=== PATIENT | male | born 1960 | race Caucasian/White ===

== ENCOUNTER 2017-01-08 16:29 | Emergency (ER) | payer SELFPAY ==
[~2017-01-08] VITALS: Ht 167.6 cm; Wt 86.6 kg
[~2017-01-08 16:29] MED LIST: FLEXERIL PO; FLEXERIL5 M1 PO; NAPROSYN500 MG PO; ULTRAM50 M1 PO
[2017-01-08] MEDS ORDERED: ZYRTEC10 MG PO (16:45)
[2017-01-08] MEDS ORDERED: ZANTAC 150 PO (16:45)
[2017-01-08 17:18] LABS: HEMATOCRIT 47.4 % (39.0-50.0); HEMOGLOBIN 16.3 g/dl (14.0-18.0); IMMATURE GRANULOCYTES 0.3 % (0.0-1.0); MEAN CELL VOLUME 88.4 fL CALC (80.0-100.0); MEAN CORPUSCULAR HGB 30.4 pG CALC (26.0-32.0); MEAN CORPUSCULAR HGB CONC 34.4 g/L CALC (32.0-36.0); NEUT# 4.71 thou/uL (1.82-7.42); RED BLOOD COUNT 5.36 mill/uL (4.70-6.10); RED CELL DISTRI WIDTH 12.8 % (11.5-15.5)
[2017-01-08 17:31] LABS: ALBUMIN 4.7 g/dL (3.2-5.0); ALKALINE PHOSPHATASE 114 u/l (38-126); ANION GAP 19 (6-22 (CALC)); BILIRUBIN, TOTAL 1.5 mg/dL (0.0-1.4); BUN 14 mg/dL (9-20); BUN/CREATININE RATIO 20 (12-20 (CALC)); CALCIUM 9.9 mg/dL (8.4-10.2); CARBON DIOXIDE 25 mmol/l (22-30); CHLORIDE 101 mmol/l (95-108); CREATININE 0.7 mg/dL (0.7-1.3); GFR > 60 ML/MIN (>=60 (CALC)); GFR FOR AFR.AMER. > 60 ML/MIN (>=60 (CALC)); GLUCOSE 94 mg/dL (75-110); POTASSIUM 3.9 mmol/l (3.5-5.1); SGOT/AST 68 u/l (17-59); SGPT/ALT 98 u/l (21-72); SODIUM 141 mmol/l (137-146); TOTAL PROTEIN 8.4 g/dL (6.3-8.2)
[2017-01-08 18:19] LABS: URINE BILIRUBIN - DIPSTICK NEGATIVE (NEGATIVE); URINE BLOOD DIPSTICK TRACE-INTACT (NEGATIVE); URINE CLARITY CLEAR; URINE COLOR YELLOW; URINE GLUCOSE - DIPSTICK NEGATIVE (NEGATIVE); URINE KETONE NEGATIVE (NEGATIVE); URINE LEUK ESTERASE NEGATIVE (NEGATIVE); URINE NITRITE - DIPSTICK NEGATIVE (Negative); URINE PROTEIN - DIPSTICK NEGATIVE (NEG-TRACE); URINE SPECIFIC GRAVITY 1.015
[2017-01-08] MEDS ORDERED: HYDROCHLOROT25 MG PO (20:17)
[2017-01-08 20:20] VITALS: BP 148/78
== END 2017-01-08 20:27 | disposition home or self-care (01) | DRG 305 ==
LOC: ED 16:29
PROVIDERS: Emergency Medicine
DX: I10 Essential (primary) hypertension (principal); N28.1 Cyst of kidney, acquired; F17.220 Nicotine dependence, chewing tobacco, uncomplicated; M54.9 Dorsalgia, unspecified; R94.31 Abnormal electrocardiogram [ECG] [EKG]

== ENCOUNTER 2017-07-01 16:03 | Emergency (ER) | payer SELFPAY ==
[~2017-07-01] VITALS: Ht 167.6 cm; Wt 84.0 kg
[~2017-07-01 16:03] MED LIST changes: +HYDROCHLOROT25 MG PO; +ZANTAC 150 PO; +ZYRTEC10 MG PO
[2017-07-01] MEDS ORDERED: EC-NAPROSYN500 MG PO (16:43)
[2017-07-01 16:50] VITALS: BP 150/86
== END 2017-07-01 16:50 | disposition home or self-care (01) | DRG 558 ==
LOC: ED 16:03
DX: M70.22 Olecranon bursitis, left elbow (principal); F17.220 Nicotine dependence, chewing tobacco, uncomplicated

== ENCOUNTER 2018-10-10 13:32 | Observation (INO) | payer BC ==
[~2018-10-10] VITALS: Ht 167.6 cm; Wt 83.4 kg
[~2018-10-10 13:32] MED LIST changes: +EC-NAPROSYN500 MG PO
--- NOTE | 2018-10-10 13:56 | NUR ---
TO RETURN TO LOBBY
--- NOTE | 2018-10-10 14:57 | NUR ---
TO ROOM 1
--- NOTE | 2018-10-10 15:20 | NUR ---
DR MARQUEZ IN ROOM FOR EVAL, REQUESTED STAT EKG PT HAS LEFT SHOULDER PAIN RADIATING TO CHEST, BUT DENIES PAIN CURRENTLY TO CHEST AREA. DID HAVE DISCOMFORT EARLIER IN DAY.
--- NOTE | 2018-10-10 15:25 | NUR ---
# 20 IV STARTED IN LAC WITH BLOOD SPECIMENS OBTAINED. PT REPORTS BILATERAL SHOULDER PAIN X 2 YEARS D/T SCIATIC ISSUES FROM LIFTING SOMETHING HEAVY. DOES HAVE INCREASED PAIN TO LEFT SHOULDER RADIATING TO LEFT UPPER CHEST WITH A PRESSURE LIKE ZULY-- 3/10 ON PAIN SCALE. PLAN OF CARE DISCUSSED WITH PT. VERBALIZED UNDERSTANDING. DENIES ANY NEEDS. CALL LIGHT WITHIN REACH.
[2018-10-10] MEDS ORDERED: ZANTAC150 M1 PO (15:49)
[2018-10-10] MEDS ORDERED: ZYRTEC10 MG PO (15:49)
[2018-10-10] MEDS ORDERED: LOPRESSOR50 M1 PO (15:49)
--- NOTE | 2018-10-10 16:00 | NUR ---
PT RELOCATED TO ROOM # 8 [facility] REPORT GIVEN TO EMELIA GARCIA. CARE RELINQUISHED
--- NOTE | 2018-10-10 16:00 | NUR ---
REPORT RECEIVED FROM SANTINO ORTIZ.
[2018-10-10 16:20] LABS: HEMATOCRIT 45.8 % (39.0-50.0); HEMOGLOBIN 15.6 g/dl (14.0-18.0); IMMATURE GRANULOCYTES 0.2 % (0.0-5.0); MEAN CELL VOLUME 92.5 fL CALC (80.0-100.0); MEAN CORPUSCULAR HGB 31.5 pG CALC (26.0-32.0); MEAN CORPUSCULAR HGB CONC 34.1 g/L CALC (32.0-36.0); NEUT# 5.41 thou/uL (1.82-7.42); RED BLOOD COUNT 4.95 mill/uL (4.70-6.10); RED CELL DISTRI WIDTH 12.7 % (11.5-15.5)
--- NOTE | 2018-10-10 16:30 | NUR ---
PATIENT REPORTS LEFT SIDE CHEST ACHE RATES 01/22. DENIES ANY NEEDS AT THIS TIME. SB NOTED ON PERSONAL CARE AID. INFORMED TO CALL FOR ASSISTANCE, WILL CONTINUE TO MONITOR.
[2018-10-10 16:36] LABS: ANION GAP 15 (6-22 (CALC)); BUN 11 mg/dL (9-20); BUN/CREATININE RATIO 17 (12-20 (CALC)); CARBON DIOXIDE 24 mmol/l (22-30); CHLORIDE 103 mmol/l (95-108); CREATININE 0.7 mg/dL (0.7-1.3); GFR > 60 ML/MIN (>=60 (CALC)); GFR FOR AFR.AMER. > 60 ML/MIN (>=60 (CALC)); POTASSIUM 4.2 mmol/l (3.5-5.1); SODIUM 138 mmol/l (137-146)
--- NOTE | 2018-10-10 17:20 | NUR ---
SNACK PROVIDED PER PATIENT REQUEST.
--- NOTE | 2018-10-10 18:21 | NUR ---
REPORT GIVEN TO SANTINO LANDA. REQUESTING MEDS FOR HTN. DR. MARQUEZ INFORMED.
[2018-10-10 18:25] VITALS: BP 180/84
--- NOTE | 2018-10-10 18:25 | NUR ---
PT ARRIVED TO FLOOR VIA WHEELCHAIR IN STABLE CONDITION ACCOMPANIED BY SPOUSE AND EMELIA GARCIA;PT AMBULATED WITH A STEADY GAIT TO STANDING SCALE AND BEDSIDE;WT AND VS OBTAINED BY [employer]HS[facility] MG;PT ALERT AND ORIENTED X3,EDUCATED PT ON ROOM AND CALL LIGHT SYSTEM;DINNER TRAY TO BE PROVIDED;PT DENIES ANY CURRENT NEEDS AND IS ENCOURAGED TO CALL FOR ASSISTANCE IF NEEDED;FALL PRECAUTIONS IN PLACE WITH CALL LIGHT IN REACH;WILL CONTINUE TO MONITOR
--- NOTE | 2018-10-10 18:25 | NUR ---
PATIENT TRANSPORTED TO [facility] VIA WHEELCHAIR WITH TELE MONITOR IN PLACE. SANTINO LANDA INFORMED OF PATIENT ARRIVAL TO ROOM. CARE RELINQUISHED.
--- NOTE | 2018-10-10 19:40 | NUR ---
PT IS IN HIGH FOLWERS POSITION IN BED W/ AT BEDSIDE. PHYSICIAN IN TO SEE PT AT THIS TIME. POC DISCUSSED AND ORDERS RECEIVED.
[2018-10-10 19:48] VITALS: BP 175/93
--- NOTE | 2018-10-11 00:05 | NUR ---
V/S ASSESSED, AIDE IN W/PT AT THIS TIME. PT DENIES ANY PAIN/N/V OR SOB. NO S/S OF DISTRESS. BREATH SOUNDS CLEAR/NON-LABORED.CALL LIGHT AT BEDSIDE.
[2018-10-11 00:56] VITALS: BP 142/86
--- NOTE | 2018-10-11 02:50 | NUR ---
PT APPEARS TO BE SLEEPING AT THIS TIME. NO S/S OF DISTRESS NOTED. CALL LIGHT AT BEDSIDE.
[2018-10-11 04:56] VITALS: BP 124/75
[2018-10-11 07:05] LABS: HEMATOCRIT 46.7 % (39.0-50.0); HEMOGLOBIN 15.4 g/dl (14.0-18.0); IMMATURE GRANULOCYTES 0.3 % (0.0-5.0); MEAN CELL VOLUME 93.8 fL CALC (80.0-100.0); MEAN CORPUSCULAR HGB 30.9 pG CALC (26.0-32.0); NEUT# 5.25 thou/uL (1.82-7.42); RED BLOOD COUNT 4.98 mill/uL (4.70-6.10)
[2018-10-11 07:16] LABS: ALBUMIN 4.1 g/dL (3.2-5.0); ALKALINE PHOSPHATASE 62 u/l (38-126); ANION GAP 13 (6-22 (CALC)); BILIRUBIN, TOTAL 2.2 mg/dL (0.0-1.4); BUN 14 mg/dL (9-20); BUN/CREATININE RATIO 21 (12-20 (CALC)); CALCULATED LDLCHOLESTEROL 138 mg/dL (62-129 (CALC)); CARBON DIOXIDE 30 mmol/l (22-30); CHLORIDE 101 mmol/l (95-108); CHOLESTEROL HDL RATIO 5.1 (<4.4 (CALC)); CREATININE 0.6 mg/dL (0.7-1.3); GFR > 60 ML/MIN (>=60 (CALC)); GFR FOR AFR.AMER. > 60 ML/MIN (>=60 (CALC)); HDL CHOLESTEROL 39 mg/dL (>=40); POTASSIUM 4.3 mmol/l (3.5-5.1); SGOT/AST 42 u/l (17-59); SODIUM 139 mmol/l (137-146); TOTAL CHOLESTEROL 200 mg/dl (0-199); TOTAL PROTEIN 7.3 g/dL (6.3-8.2); TOTAL TRIGLYCERIDES 115 mg/dl (30-149); VLDL CHOLESTROL 23 mg/dl (8-62 (CALC))
--- NOTE | 2018-10-11 07:28 | NUR ---
REPORT RECEIVED FROM EMELIA CORRAL; PT SITTING UP IN BED STATED " I'M HUNGRY" RESP EVEN AND UNLABORED;
[2018-10-11 09:03] VITALS: BP 138/84
--- NOTE | 2018-10-11 09:16 | NUR ---
PT SITTING UP IN BED WATCHING TV; AM MEDS ADMINISTERED; VITALS STABLE; VOICE NO PAIN; LAST BOWEL MOVEMENT LAST NIGHT; NO EDEMA NOTED; RESP EVEN AND UNLABRED; STATES " DR LAYTON SAYS I'M GOING HOME TODAY" TELE IN PLACE; IV FLUSHED WITHOUT DIFFICULTY; CALL POSADAS IN REACH; WILL CONTINUE TO MONITOR.
[2018-10-11 11:45] VITALS: BP 151/90
--- NOTE | 2018-10-11 12:00 | NUR ---
PT SITTING UP IN BED WATCHING TV; TELE IN PLACE; IV PATENT; VOICE NO PAIN; ANXIOUS OF GOING HOME; RESP EVEN AND UNLABORED; CALL LIGHT IN REACH.
--- NOTE | 2018-10-11 15:29 | NUR ---
ENTERED ROOM, PT ASK IF DR LAYTON PUT IN DC ORDERS; TOLD PT WILL CALL DOC REGARDING DC; PT VOICE NO OTHER CONCERNS; TELE IN PLACE; CALL POSADAS IN REACH.
--- NOTE | 2018-10-11 16:42 | NUR ---
Discharge instructions given. Patient verbalizes understanding of same. Discharged in stable condition via Wheelchair to Home with spouse. All belongings sent with pt.
== END 2018-10-11 16:44 | disposition home or self-care (01) | DRG 313 ==
LOC: ED 13:32 → ED-I 16:52 → ED 17:27 → MS2 17:28
PROVIDERS: Family Medicine; ADMIT Internal Medicine Geriatric Medicine; ATTEND Internal Medicine Geriatric Medicine
DX: R07.89 Other chest pain (principal); L03.116 Cellulitis of left lower limb; I10 Essential (primary) hypertension; F17.290 Nicotine dependence, other tobacco product, uncomplicated; K59.00 Constipation, unspecified; J44.9 Chronic obstructive pulmonary disease, unspecified; K40.90 Unilateral inguinal hernia, without obstruction or gangrene, not specified as recurrent; F41.9 Anxiety disorder, unspecified; F19.10 Other psychoactive substance abuse, uncomplicated; M54.9 Dorsalgia, unspecified
CPT/HCPCS: G0378

== ENCOUNTER 2019-02-05 10:59 | Emergency (ER) | payer OTHER, BC ==
[~2019-02-05] VITALS: Ht 167.6 cm; Wt 83.0 kg
[~2019-02-05 10:59] MED LIST changes: +LOPRESSOR50 M1 PO; +ZANTAC150 M1 PO
[2019-02-05] MEDS ORDERED: CEPHALEXIN500 M1 PO (11:10)
[2019-02-05] MEDS ORDERED: LISINOPRIL20 MG PO (11:14)
[2019-02-05 11:51] VITALS: BP 145/77
== END 2019-02-05 11:53 | disposition home or self-care (01) | DRG 605 ==
LOC: ED 10:59
PROC: 0HQGXZZ Repair Left Hand Skin, External Approach (ICD-10-PCS; principal; 2019-02-05)
DX: S61.412A Laceration without foreign body of left hand, initial encounter (principal); W45.0XXA Nail entering through skin, initial encounter; Y93.89 Activity, other specified; Y92.89 Other specified places as the place of occurrence of the external cause; Y99.0 Civilian activity done for income or pay

== ENCOUNTER 2019-02-10 08:35 | Emergency (ER) | payer OTHER, BC ==
[~2019-02-10] VITALS: Ht 167.6 cm; Wt 90.0 kg
[~2019-02-10 08:35] MED LIST changes: +CEPHALEXIN500 M1 PO; +LISINOPRIL20 MG PO
[2019-02-10 09:43] VITALS: BP 160/93
== END 2019-02-10 09:51 | disposition home or self-care (01) | DRG 950 ==
LOC: ED 08:35
DX: S61.412D Laceration without foreign body of left hand, subsequent encounter (principal)

== ENCOUNTER 2019-02-15 08:30 | Emergency (ER) | payer OTHER, BC ==
[~2019-02-15] VITALS: Ht 170.2 cm; Wt 84.0 kg
[2019-02-15] MEDS ORDERED: ASPIRIN EC LOW81 MG PO (08:40)
[2019-02-15] MEDS ORDERED: ZYRTEC10 MG PO (08:40)
[2019-02-15] MEDS ORDERED: PREVACID15 M1 PO (08:41)
[2019-02-15 09:05] VITALS: BP 175/59
== END 2019-02-15 09:05 | disposition home or self-care (01) | DRG 950 ==
LOC: ED 08:30
DX: S61.402D Unspecified open wound of left hand, subsequent encounter (principal); X58.XXXD Exposure to other specified factors, subsequent encounter; F17.290 Nicotine dependence, other tobacco product, uncomplicated; I10 Essential (primary) hypertension

== ENCOUNTER 2019-05-27 14:12 | Emergency (ER) | payer OTHER, BC ==
[~2019-05-27] VITALS: Ht 170.2 cm; Wt 82.0 kg
[~2019-05-27 14:12] MED LIST changes: +ASPIRIN EC LOW81 MG PO; +PREVACID15 M1 PO
[2019-05-27 15:11] VITALS: BP 162/101
== END 2019-05-27 15:18 | disposition home or self-care (01) | DRG 923 ==
LOC: ED 14:12
DX: Z04.1 Encounter for examination and observation following transport accident (principal); I10 Essential (primary) hypertension; F17.290 Nicotine dependence, other tobacco product, uncomplicated

== ENCOUNTER 2019-06-24 16:54 | Emergency (ER) | payer BC ==
[~2019-06-24] VITALS: Ht 170.2 cm; Wt 81.8 kg
[2019-06-24] MEDS ORDERED: CYCLOBENZAPR5 MG PO (18:03)
[2019-06-24 18:41] VITALS: BP 150/90
== END 2019-06-24 18:41 | disposition home or self-care (01) | DRG 552 ==
LOC: ED 16:54
DX: M62.830 Muscle spasm of back (principal); I10 Essential (primary) hypertension; F17.290 Nicotine dependence, other tobacco product, uncomplicated

== ENCOUNTER 2019-06-27 13:04 | Emergency (ER) | payer BC ==
[~2019-06-27] VITALS: Ht 170.2 cm; Wt 79.0 kg
[~2019-06-27 13:04] MED LIST changes: +CYCLOBENZAPR5 MG PO
[2019-06-27] MEDS ORDERED: PREDNISONE20 MG PO (14:27)
[2019-06-27] MEDS ORDERED: PERCOCET 10/31 COMBO PO (14:29)
[2019-06-27 14:48] VITALS: BP 165/98
== END 2019-06-27 14:48 | disposition home or self-care (01) | DRG 552 ==
LOC: ED 13:04
DX: M54.41 Lumbago with sciatica, right side (principal); I10 Essential (primary) hypertension

== ENCOUNTER 2019-06-30 09:59 | Emergency (ER) | payer BC ==
[~2019-06-30] VITALS: Ht 170.2 cm; Wt 79.0 kg
[~2019-06-30 09:59] MED LIST changes: +PERCOCET 10/31 COMBO PO; +PREDNISONE20 MG PO
[2019-06-30 12:16] LABS: URINE BLOOD DIPSTICK NEGATIVE (NEGATIVE); URINE GLUCOSE - DIPSTICK NEGATIVE (NEGATIVE); URINE KETONE 15 mg/dL (NEGATIVE); URINE LEUK ESTERASE NEGATIVE (NEGATIVE); URINE NITRITE - DIPSTICK NEGATIVE (Negative); URINE PH 5.5 (4.5-8.0); URINE PROTEIN - DIPSTICK TRACE mg/dL (NEG-TRACE); URINE SPECIFIC GRAVITY >=1.030
[2019-06-30 12:19] LABS: URINE BILIRUBIN - DIPSTICK SMALL (NEGATIVE); URINE COLOR AMBER
[2019-06-30 13:02] LABS: IMMATURE GRANULOCYTES 0.5 % (0.0-5.0); MEAN CORPUSCULAR HGB 30.4 pG CALC (26.0-32.0); MEAN CORPUSCULAR HGB CONC 33.4 g/L CALC (32.0-36.0); RED BLOOD COUNT 5.79 mill/uL (4.70-6.10); RED CELL DISTRI WIDTH 12.7 % (11.5-15.5)
[2019-06-30 13:09] LABS: ALBUMIN 4.4 g/dL (3.2-5.0); ALKALINE PHOSPHATASE 80 u/l (38-126); ANION GAP 16 (6-22 (CALC)); BILIRUBIN, TOTAL 1.8 mg/dL (0.0-1.4); BUN 33 mg/dL (9-20); BUN/CREATININE RATIO 39 (12-20 (CALC)); CARBON DIOXIDE 27 mmol/l (22-30); CHLORIDE 99 mmol/l (95-108); CPK 141 u/l (52-200); CREATININE 0.9 mg/dL (0.7-1.3); GFR > 60 ML/MIN (>=60 (CALC)); GFR FOR AFR.AMER. > 60 ML/MIN (>=60 (CALC)); SGOT/AST 44 u/l (17-59); SODIUM 137 mmol/l (137-146); TOTAL PROTEIN 7.7 g/dL (6.3-8.2)
[2019-06-30 13:27] LABS: HEMATOCRIT 52.7 % (39.0-50.0); HEMOGLOBIN 17.6 g/dl (14.0-18.0)
[2019-06-30] MEDS ORDERED: TRAMADOL HYDROC50 MG PO (14:09)
[2019-06-30] MEDS ORDERED: ORPHENADRINE100 MG PO (14:09)
[2019-06-30 14:31] VITALS: BP 166/101
== END 2019-06-30 15:19 | disposition home or self-care (01) | DRG 552 ==
LOC: ED 09:59
DX: M54.41 Lumbago with sciatica, right side (principal); I10 Essential (primary) hypertension